=== PATIENT | male | born 1930 | race Caucasian/White ===

== ENCOUNTER 2017-03-31 15:16 | Emergency (ER) | payer OTHER ==
[~2017-03-31] VITALS: Ht 162.6 cm; Wt 69.8 kg
[2017-03-31] MEDS ORDERED: LASIX 40 MG TAB40 M2 PO (15:32)
[2017-03-31] MEDS ORDERED: SYNTHROID100 MCG PO (15:32)
[2017-03-31] MEDS ORDERED: PREDNISONE 5 MG5 M1 PO (15:32)
[2017-03-31] MEDS ORDERED: MIRAPEX 0.250.25 M1 PO (15:33)
[2017-03-31] MEDS ORDERED: LIPITOR10 MG PO (15:33)
[2017-03-31] MEDS ORDERED: OMEPRAZOLE 20 M20 M1 PO (15:34)
[2017-03-31] MEDS ORDERED: POTASSIUM99 M1 PO (15:34)
[2017-03-31] MEDS ORDERED: NORCO 5-325 TA1 EACH PO (17:29)
[2017-03-31 17:51] VITALS: BP 134/87
== END 2017-03-31 18:21 | disposition home or self-care (01) ==
LOC: M.ERS 15:16
DX: S22.31XA Fracture of one rib, right side, initial encounter for closed fracture (principal); S00.512A Abrasion of oral cavity, initial encounter; W01.0XXA Fall on same level from slipping, tripping and stumbling without subsequent striking against object, initial encounter; Y93.89 Activity, other specified; Y92.89 Other specified places as the place of occurrence of the external cause; Y99.8 Other external cause status